=== PATIENT | male | born 1980 | race Two or more races ===

== ENCOUNTER 2018-06-03 17:03 | Emergency (ER) | payer SELFPAY ==
[~2018-06-03] VITALS: Ht 170.2 cm; Wt 79.4 kg
[2018-06-03] MEDS ORDERED: NEOMY SULF/BACITRAC ZN/POLY 15 GM TUBE TP STA (17:22)
[2018-06-03] MEDS ORDERED: KETOROLAC TROMETHAMINE INJ 60 MG/2 ML VIAL IM ONE (17:30)
[2018-06-03] MEDS ORDERED: TDAP [DIPH/PERTUSSIS/TET] 0.5 ML VIAL IM ONE ×2 (17:30→17:55)
[2018-06-03 17:42] VITALS: BP 124/74
[2018-06-03] MEDS ORDERED: KETOROLAC TROMETHAMINE INJ 30 MG/ML VIAL ONE (17:55)
== END 2018-06-03 18:23 | disposition home or self-care (01) ==
LOC: ER 17:06
DX: S29.011A Strain of muscle and tendon of front wall of thorax, initial encounter (principal); S66.011A Strain of long flexor muscle, fascia and tendon of right thumb at wrist and hand level, initial encounter; S50.812A Abrasion of left forearm, initial encounter; V49.59XA Passenger injured in collision with other motor vehicles in traffic accident, initial encounter; Y93.89 Activity, other specified; Y92.413 State road as the place of occurrence of the external cause; Y99.8 Other external cause status
CPT/HCPCS: 71045; 73090; 73120; 90471; 90715; 96372; 99284; A4606; J1885; Z7610